=== PATIENT | female | born 1985 | race Caucasian/White ===

== ENCOUNTER 2017-08-09 17:45 | Emergency (ER) | payer OTHER ==
[~2017-08-09] VITALS: Ht 162.6 cm; Wt 47.6 kg
[~2017-08-09 17:45] MED LIST: CHROMAGEN,1 CAPSULE PO; CLEOCIN300 MG PO; HEPARIN SO25000 UNIT SC; IBUPROFEN800 MG PO; LOVENOX40 MG/0.4 SC; METHADONE1 MG/1 ML PO; PREDNISONE20 MG PO; VALTREX50 MG/ML PO
[2017-08-09] MEDS ORDERED: KEFLEX500 MG PO (19:34)
[2017-08-09] MEDS ORDERED: BACTRIM,SEPT1 TABLET PO (19:34)
[2017-08-09] MEDS ORDERED: BACTROBAN OINTM22 GM TP (19:35)
[2017-08-09] MEDS ORDERED: KENALOG,ARISTOC80 G1 TP (19:35)
[2017-08-09 20:28] VITALS: BP 132/93
== END 2017-08-09 20:29 | disposition home or self-care (01) ==
LOC: EME 17:45
DX: L03.211 Cellulitis of face (principal); F17.200 Nicotine dependence, unspecified, uncomplicated
CPT/HCPCS: 99281; 99283